=== PATIENT | female | born 1965 | race Hispanic/Latino ===

== ENCOUNTER 2017-03-06 14:42 | Emergency (ER) | payer MEDICAID ==
[2017-03-06 16:23] LABS: Mean Corpuscular HGB Conc 29 % (30-34); Mean Corpuscular Volume 78 fl (79-97); Red Blood Count 3.76 M/mm3 (3.65-5.03)
[2017-03-06 16:30] LABS: Hematocrit 29.5 % (30.3-42.9); Hemoglobin 8.5 gm/dl (10.1-14.3); Mean Corpuscular Hemoglobin 23 pg (28-32); Red Cell Distribution Width 20.7 % (13.2-15.2); White Blood Count 1.7 K/mm3 (4.5-11.0)
[2017-03-06 16:34] LABS: Alanine Aminotransferase 60 units/L (7-56); Albumin 3.7 g/dL (3.9-5); Albumin/Globulin Ratio 1.5 %; Alkaline Phosphatase 91 units/L (35-129); Anion Gap 10 mmol/L; Bilirubin,Direct 0.5 mg/dL (0-0.2); Bilirubin,Indirect 0.8 mg/dL; Blood Urea Nitrogen 9 mg/dL (7-17); Calcium 8.4 mg/dL (8.4-10.2); Carbon Dioxide 32 mmol/L (22-30); Chloride 103.3 mmol/L (98-107); Glucose 156 mg/dL (65-100); Potassium 4.2 mmol/L (3.6-5.0); Sodium 141 mmol/L (137-145); Total Protein 6.2 g/dL (6.3-8.2)
[2017-03-06 16:40] LABS: INR 1.5 (0.87-1.13)
[2017-03-06 16:57] LABS: Platelet Count 44 K/mm3 (140-440)
[2017-03-06 17:03] LABS: Basophils % (Manual) 0 % (0.0-1.8); Blastocytes % (Manual) 0 %; Eosinophils % (Manual) 0 % (0.0-4.3); Platelet Estimate Appears Decreased
[2017-03-06 17:04] LABS: Anisocytosis 1+; Elliptocytes Few; Tear Drop Cells Few
[2017-03-06 17:05] LABS: Diff Status Complete; Hypochromasia 1+
[2017-03-06] MEDS ORDERED: DILAUDID IV ONE (17:28)
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
--- NOTE | 2017-03-06 19:41 | Ultrasound Report ---
FINAL REPORT EXAM: US PELVIS DUPLEX DOPPLER COMP HISTORY: pelvic pain and vag bleeding TECHNIQUE: Transabdominal pelvic ultrasound was performed. Multiple grayscale sonographic images were obtained of the pelvis. PRIORS: Endovaginal ultrasound from 03/06/2017 FINDINGS: This study is markedly limited by patient body habitus and overlying bowel gas. The uterus and ovaries were not identified with certainty. No abnormal fluid collections are identified in the images provided. IMPRESSION: 1. Nondiagnostic exam. The study is limited by overlying bowel gas. The uterus and ovaries were not well seen. 2. Please refer to report from endovaginal ultrasound from 03/06/2017 for additional information.
--- NOTE | 2017-03-06 19:51 | Ultrasound Report ---
FINAL REPORT EXAM: US TRANSVAGINAL HISTORY: pelvic pain and vag bleeding TECHNIQUE: Endovaginal ultrasound was performed in multiple grayscale sonographic images were obtained of the uterus and adnexa. Doppler interrogation of the ovaries was performed. PRIORS: None. FINDINGS: Uterus measures approximately 5.8 x 3.6 x 4.5 centimeters with endometrial stripe thickness 10 millimeters. Two heterogeneous foci are seen in the uterus measuring up to 11 millimeters. There is a subtle heterogeneous focus within the endometrial canal that measures approximately 13 x 8 x 11 millimeters. Right and left ovary measure approximately 2.7 x 1.9 x 2 centimeters and 3.8 x 2.3 x 1.8 centimeters, respectively. There is an 11 millimeter cyst in the right ovary. There is a 2.8 centimeter cyst in the left ovary. Blood flow was detected in the ovaries during the exam. Moderate amount of free fluid is seen in the pelvis. IMPRESSION: 1. Moderate amount of free fluid is seen in the dependent portion of the pelvis. This is a nonspecific finding. It may be physiologic. 2. Heterogeneous foci are seen in the uterine fundus. These may represent fibroids. 3. There is a heterogeneous focus in the endometrial canal that measures approximately 13 millimeters. This is a nonspecific finding. It may represent endometrial fibroid or endometrial polyp, but could also be related to hyperplasia or possibly endometrial carcinoma. Biopsy may be necessary for diagnosis.
[2017-03-06 19:55] LABS: Bacteria,Urine 1+ /HPF (Negative); Bilirubin,Urine NEG (Negative); Blood,Urine LG (Negative); Ketones,Urine NEG (Negative); Leukocyte Esterase,Urine NEG (Negative); Mucus,Urine FEW /HPF; Nitrite,Urine POS (Negative); Protein,Urine <15 mg/dL mg/dL (Negative)
[2017-03-06 21:55] VITALS: BP 110/44
== END 2017-03-06 21:45 | disposition home or self-care (01) ==
LOC: ED 14:42
DX: N93.8 Other specified abnormal uterine and vaginal bleeding (principal); D25.9 Leiomyoma of uterus, unspecified; R10.2 Pelvic and perineal pain; M06.9 Rheumatoid arthritis, unspecified; F31.9 Bipolar disorder, unspecified; C22.9 Malignant neoplasm of liver, not specified as primary or secondary; F17.200 Nicotine dependence, unspecified, uncomplicated; F12.10 Cannabis abuse, uncomplicated; Z91.013 Allergy to seafood; Z88.0 Allergy status to penicillin; Z91.012 Allergy to eggs; Z88.8 Allergy status to other drugs, medicaments and biological substances
CPT/HCPCS: 36415; 76830; 80048; 80074; 81001; 84703; 85007; 85025; 85610; 85730; 86850; 86900; 86901; 93975; 96374; 99285; J1170